=== PATIENT | female | born 1935 | race Caucasian/White ===

== ENCOUNTER 2020-06-13 10:02 | Emergency (ER) | payer MEDICARE ==
--- NOTE | 2020-06-13 10:55 | ER Document Report ---
ED Medical Screen (RME) - General Chief Complaint: Abdominal Pain Stated Complaint: ABDOMINAL PAIN Time Seen by Provider: 06/13/20 10:51 Information source: Patient Notes: Patient presents complaining of right-sided abdominal pain that radiates to right flank that has been off and on for the past 4 days. Patient states presently the pain has eased off. Patient has had some nausea without vomiting. Patient denies any fever. Patient does report pressure with voiding and some urinary frequency. Patient does have a history of arthritis and a previous hysterectomy and appendectomy. I have greeted and performed a rapid initial assessment of this patient. A comprehensive ED assessment and evaluation of the patient, analysis of test results and completion of the medical decision making process will be conducted by additional ED providers. - Related Data Allergies/Adverse Reactions: No Known Allergies Allergy (Verified 11/25/11 01:22) Past Medical History - Immunizations Hx Diphtheria, Pertussis, Tetanus Vaccination: Yes Physical Exam - Vital signs Vitals: Temp Pulse Resp BP Pulse Ox 98.2 F 63 16 139/76 H 99 06/13/20 10:13 06/13/20 10:13 06/13/20 10:13 06/13/20 10:13 06/13/20 10:13 - Back Back: CVA tenderness - Right Course - Vital Signs Vital signs: Temp Pulse Resp BP Pulse Ox 98.2 F 63 16 139/76 H 99 06/13/20 10:13 06/13/20 10:13 06/13/20 10:13 06/13/20 10:13 06/13/20 10:13
[2020-06-13 11:35] LABS: HEMATOCRIT 43.7 % (36.0-47.0); HEMOGLOBIN 14.7 g/dL (12.0-15.5); MEAN CORPUSCULAR HEMOGLOBIN 29.7 pg (27.0-33.4); MEAN CORPUSCULAR HGB CONC 33.6 g/dL (32.0-36.0); MEAN CORPUSCULAR VOLUME 88 fl (80-97); PLATELET COUNT 222 10^3/uL (150-450); RED BLOOD COUNT 4.94 10^6/uL (3.72-5.28); RED CELL DISTRIBUTION WIDTH 14.7 % (11.5-14.0); WHITE BLOOD COUNT 8.3 10^3/uL (4.0-10.5)
--- NOTE | 2020-06-13 11:49 | RADIOLOGY REPORT (SQ) ---
EXAM DESCRIPTION: CT ABD/PELVIS NO ORAL OR IV IMAGES COMPLETED DATE/TIME: 06/13/2020 11:32 am REASON FOR STUDY: RLQ, r flank pain COMPARISON: 01/25/2012 TECHNIQUE: CT scan of the abdomen and pelvis performed without intravenous or oral contrast. Images reviewed with lung, soft tissue, and bone windows. Reconstructed coronal and sagittal MPR images revi ewed. All images stored on PACS. All CT scanners at this facility use dose modulation, iterative reconstruction, and/or weight based d osing when appropriate to reduce radiation dose to as low as reasonably achievable (ALARA). [facility]: Dose Right [facility]: CareDose [facility]: Dose Right [facility]: Teradose 4D [facility]: Smart TBi Connect RADIATION DOSE: CT Rad equipment meets quality standard of care and radiation dose reduction techniq ues were employed. CTDIvol: 4.8 mGy. DLP: 188 mGy-cm.mGy. LIMITATIONS: None. FINDINGS: LOWER CHEST: No significant findings. No nodules or infiltrates. NON-CONTRASTED LIVER, SPLEEN, ADRENALS: There is of scarring in the posterior right lobe of liver new from prior exam. Has there been trauma? The spleen and adrenals are stable in appearance. PANCREAS: No masses. No peripancreatic inflammatory changes. GALLBLADDER: No identified stones by CT criteria. No inflammatory changes to suggest cholecystitis. RIGHT KIDNEY AND URETER: No suspicious masses. Assessment limited by lack of IV contrast. Numerous right renal calculi. The largest lies in the renal pelvis and measures 7.2 x 11.1 mm. Hounsfield un its measure 921. No hydronephrosis or hydroureter. LEFT KIDNEY AND URETER: No suspicious masses. Assessment limited by lack of IV contrast. No signifi cant calcifications. No hydronephrosis or hydroureter. AORTA AND RETROPERITONEUM: Atherosclerotic change. Diffuse sec ectasia no aneurysmal dilatation. BOWEL AND PERITONEAL CAVITY: Moderate constipation. APPENDIX: Not visualized. PELVIS, BLADDER, AND ABDOMINAL WALL:No abnormal masses. No free fluid. Bladder normal. BONES: Lumbar scoliosis with concavity toward the right in the thoracolumbar region in toward the lef t in the lumbar spine. OTHER: No other significant finding. IMPRESSION: 1. 7.2 x 11.1 mm right renal pelvic stone. Hounsfield units measure 921. There is no hydronephrosis. No perinephric stranding. 2. Additional small nonobstructing right renal calculi 2 to 3 mm in greatest diameter. 3. Diffuse atherosclerotic change of the abdominal aorta with ectasia. No aneurysmal dilatation. 4. Moderate constipation. 5. Degenerative changes in the lumbar spine. COMMENT: Quality ID # [id number]: Final reports with documentation of one or more dose reduction techniques (e.g., Automated exposure control, adjustment of the mA and/or kV according to patient size, use of iterative reconstruction technique) TECHNICAL DOCUMENTATION: JOB ID: [id number] 2010 [employer]- All Rights Reserved Reading location - IP/workstation name: [email or web address]
[2020-06-13 11:52] LABS: ALBUMIN 3.7 g/dL (3.5-5.0); ALKALINE PHOSPHATASE 115 U/L (38-126); ANION GAP 7 (5-19); ASPARTATE AMINO TRANSFERASE 25 U/L (14-36); BILIRUBIN,DIRECT 0.2 mg/dL (0.0-0.4); BILIRUBIN,TOTAL 0.7 mg/dL (0.2-1.3); BLOOD UREA NITROGEN 17 mg/dL (7-20); CARBON DIOXIDE 32 mmol/L (22-30); CHLORIDE 100 mmol/L (98-107); GLUCOSE 97 mg/dL (75-110); POTASSIUM 4.4 mmol/L (3.6-5.0); TOTAL PROTEIN 6.4 g/dL (6.3-8.2)
[2020-06-13] MEDS ORDERED: NORMAL SALINE 500 ML IV ONE (12:31)
[2020-06-13 12:53] LABS: APPEARANCE,URINE HAZY; BILIRUBIN,URINE NEGATIVE (NEGATIVE); COLOR,URINE YELLOW; GLUCOSE, URINE NEGATIVE (NEGATIVE); KETONES,URINE NEGATIVE (NEGATIVE); LEUKOCYTE ESTERASE,URINE TRACE (NEGATIVE); NITRITE,URINE NEGATIVE (NEGATIVE); PROTEIN,URINE 30 mg/dL (NEGATIVE); UROBILINOGEN,URINE NEGATIVE mg/dL (<2.0)
--- NOTE | 2020-06-13 13:38 | RADIOLOGY REPORT (SQ) ---
EXAM DESCRIPTION: U/S ABDOMEN LIMITED W/O DOP IMAGES COMPLETED DATE/TIME: 06/13/2020 1:05 pm REASON FOR STUDY: RUQ abdominal pain, nausea/vomiting COMPARISON: None. TECHNIQUE: Dynamic and static grayscale images acquired of the abdomen and recorded on PACS. Igoro sarwat selected color Doppler and spectral images recorded. LIMITATIONS: None. FINDINGS: PANCREAS: Poorly seen. LIVER: No masses. Echotexture normal. LIVER VASCULATURE: Normal directional flow of the main portal vein and hepatic veins. GALLBLADDER: No stones. Normal wall thickness. No pericholecystic fluid. ULTRASOUND-DETECTED GONZALEZ'S SIGN: Negative. INTRAHEPATIC DUCTS AND COMMON DUCT: CBD and intrahepatic ducts normal caliber. No filling defects. AORTA: No aneurysm. RIGHT KIDNEY: Normal size, 9.3 cm. Normal echogenicity. No solid or suspicious masses. No hydronephr osis. There appears to be a 13 x 14 x 6 mm calculus. PERITONEAL AND RIGHT PLEURAL SPACE: No ascites or effusions. OTHER: No other significant findings. IMPRESSION: Normal liver, gallbladder, and ductal system. Possible intrarenal calculus. TECHNICAL DOCUMENTATION: JOB ID: [id number] 2010 [employer]- All Rights Reserved Reading location - IP/workstation name: [email or web address]
--- NOTE | 2020-06-13 14:00 | ER Document Report ---
ED General - General Chief Complaint: Flank Pain Stated Complaint: ABDOMINAL PAIN Time Seen by Provider: 06/13/20 10:51 Primary Care Provider: GEORGIA CARBAJAL [NO LOCAL MD] - Follow up as needed - HPI Notes: Chief Complaint: Patient and daughter Historian: History obtained from patient HPI: This is a 85-year-old female presents to the ER complaint of right flank pain x2 days. Flank pain radiates to the right lower side of her abdomen. Pain is intermittent and severe. Patient has episodes of extremely severe pain that lasts 10 to 20 minutes and then resolves. Patient does have a history of kidney stones. She has not noticed any gross blood in her urine. She does report some urinary frequency recently. She had some nausea this morning medicines resolved. Denies fever, chills, chest pain, shortness of breath, bowel changes. Only prior abdominal surgery is appendectomy many years ago. ROS: Constitutional: no fevers. HEENT: no SANTA, sore throat, or vision changes. CV: no chest pain or palpitations. Resp: no cough or SOB. GI: Right flank and right abdominal pain. Nausea. : no dysuria, hematuria, or incont. MSK: no back pain, no joint swelling/redness. Skin: no rashes or itching. Neuro: no seizures, weakness, numbness, or confusion. Hematological: no ecchymosis or easy bleeding. Endocrine: no polyuria/polydipsia, no heat/cold intolerance. Psych: no SI/HI, AH/VH or memory loss. PMHx: Reviewed and agree as charted by RN. PSHx: Reviewed and agree as charted by RN. SOCHx: Reviewed and agree as charted by RN. FHX: No significant familial comorbid conditions directly related to patient complaint Current Medications: Reviewed and agree with the patient medications as charted by the RN. Allergies: Reviewed and agree with the listed allergies as charted by the RN Physical Exam: Vitals: Reviewed in chart as documented by RN. General: Alert and in NAD. Head: Normocephalic; atraumatic Eyes: PERRLA, Conjunctivae clear sclerae non-icteric bilat ENT: no soft palate swelling or uvular deviation Neck: trachea midline, no unilateral swelling/tenderness/lymphadenopathy CV: RRR, no M/R/G; symmetric distal pulses Resp: respirations even and unlabored, CTA bilat. GI: abd soft and nondistended. NTTP. mild right cvat. no masses or hsm. normal bs. no gaurding or rebound. neg brownlee's MSK: FROM of all extremities. No midline CTL spine tenderness/deformity Skin: warm, moist, good turgor. no rash/lesions Neuro: Alert and oriented X 4. following CN 2-12 intact. no unilateral weakness/numbness Psych: No SI/HI or AH/VH. ED Results: Medical Decision-Making: Medical Decision-making/Differential Diagnosis: Consider various etiologies including but not limited to lumbar strain, disc herniation, DDD, Abdominal pain, Hernia, Acute Gastritis, Appendicitis, Partial or Complete small bowel obstruction, Cholecysitis, Diverticulitis, Gastroente ritis, GERD, Nephrolithiasis, Pancreatitis, Peptic Ulcer Disease, Urinary Tract Infection, Pyelonephritis, Infection, metabolic derangement, ect plan - Labs, urine, CT abdomen and pelvis, IV fluid hydration, prn opiate analgesia, prn antiemetics, and a period of observation in the emergency depa rtment for frequent reassessments. This course of action was discussed with the patient and/or family. They were amenable to this, verbalized understanding, and were without further questions. - Related Data Allergies/Adverse Reactions: No Known Allergies Allergy (Verified 06/13/20 11:10) Past Medical History - General Information source: Patient - Social History Smoking Status: Never Smoker Chew tobacco use (# tins/day): No Frequency of alcohol use: None Drug Abuse: None Family History: Reviewed & Not Pertinent - Immunizations Hx Diphtheria, Pertussis, Tetanus Vaccination: Yes Physical Exam - Vital signs Vitals: Temp Pulse Resp BP Pulse Ox 98.2 F 63 16 139/76 H 99 06/13/20 10:13 06/13/20 10:13 06/13/20 10:13 06/13/20 10:13 06/13/20 10:13 Course - Re-evaluation Re-evalutation: 06/13/20 14:18 labs reviewed and reassuring. CT scan notes 11mm right renal pelvis stone- no hydro or standing. pending UA. Pt declines pain or nausea medications and appears comfortable at this time. Will get abdominal US to r/o gallbladder pathology since CT scan does not show signs of an obstructive kidney stone, although its possible intermittent obstructions. UA resulted- large blood, > 182 RBC. 22 wbc, trace bacteria. consistent with kidney stone. US resulted- normal liver and GB. likely intra-renal kidney stone. 06/13/20 14:23 Pt has been very comfortable since arriving to the ER. Suspect her large stone in the renal pelvis is intermittently obstructing and causing her symptoms ( or possibly just passed a stone). Will d/c pt home w/ pain control and nausea meds- urology referral given- pt is to call today to schedule an appiontment as she is unlikely to pass an 11mm stone on her own. No signs of infection, abx not indicated. return factors discussed. - Vital Signs Vital signs: Temp Pulse Resp BP Pulse Ox 98.2 F 63 16 139/76 H 99 06/13/20 10:13 06/13/20 10:13 06/13/20 10:13 06/13/20 10:13 06/13/20 10:13 - Laboratory Results Result Diagrams: 06/13/20 11:15 06/13/20 11:15 Laboratory Results Interpreted: 06/13/20 06/13/20 06/13/20 11:15 11:15 12:25 RDW 14.7 H Lymph % (Auto) 11.9 L Carbon Dioxide 32 H Urine Protein 30 H Urine Blood LARGE H Ur Leukocyte Esterase TRACE H Urine Ascorbic Acid 40 H Critical Laboratory Results Reviewed: No Critical Results - Radiology Results Critical Radiology Results Reviewed: No Critical Results Discharge - Discharge Clinical Impression: Right kidney stone Condition: Stable Disposition: HOME, SELF-CARE Instructions: Kidney Stone ([facility]) Additional Instructions: take medications as prescribed. no driving on pain medications. drink plenty of fluids. call urology today to schedule an appointment [place]. return to the ER if your condition worsens or if you get a fever, chills, intractable vomiting, or any other concerning symptoms. Prescriptions: Ondansetron [Zofran Odt 4 mg Tablet] 1 tab PO Q6HP PRN #10 tab.rapdis PRN Reason: For Nausea/Vomiting Ketorolac Tromethamine [Toradol 10 mg Tablet] 10 mg PO Q8HP PRN #12 tablet PRN Reason: Referrals: GEORGIA CARBAJAL [NO LOCAL MD] - Follow up as needed
[2020-06-13] MEDS ORDERED: HYDROCODONE/ACETAMINOPHEN 5-325 MG (6 TAB/ER DISP) PO PRN (14:35)
[2020-06-13 14:56] VITALS: BP 128/63
[2020-06-14 11:39] LABS: ABSOLUTE LYMPHOCYTES# (MANUAL) 0.9 10^3/uL (0.5-4.7); ABSOLUTE MONOCYTES # (MANUAL) 0.6 10^3/uL (0.1-1.4); ANISOCYTOSIS SLIGHT; BAND NEUTROPHILS % (MANUAL) 8 % (3-5); BASOPHILS % (MANUAL) 1 % (0-2); EOSINOPHILS % (MANUAL) 1 % (0-6); LYMPHOCYTES % (MANUAL) 11 % (13-45); METAMYELOCYTES % (MANUAL) 2 % (0-1); MONOCYTES % (MANUAL) 7 % (3-13); SEGMENTED NEUTROPHILS % (MAN) 70 % (42-78); TOTAL CELLS COUNTED 100
[2020-06-14 11:40] LABS: PLATELET COMMENT ADEQUATE
== END 2020-06-13 15:03 | disposition home or self-care (01) ==
LOC: ER 10:02
DX: N20.0 Calculus of kidney (principal); R11.0 Nausea; R10.9 Unspecified abdominal pain; Z87.442 Personal history of urinary calculi
CPT/HCPCS: 99285; 36415; 87086; 83690; 85025; 80053; 81001; 76705; 74176; J7040; A9270